=== PATIENT | female | born 2005 | race Caucasian/White ===

== ENCOUNTER 2024-10-01 10:45 | Day surgery (SDC) | payer OTHER, SELFPAY ==
[2024-10-01] VITALS (7 sets, daily range): BP systolic 106–118; BP diastolic 69–86; PULSE 46–75; RESP 12–22; TEMP 36.6; O2SAT 100
--- NOTE | 2024-10-01 11:55 | PM.GYNHP.1 ---
History of Present Illness History of Present Illness Narrative: Soraida Styles is a 19 year old female G0 who presents for a Kyleena IUD insertion Unable to tolerate in the office Has never had a Pap Meds Home Medications and Allergies Allergies Allergy/AdvReac Type Severity Reaction Status Date / Time latex Allergy Intermediate Rash Verified 10/01/24 11:27 Exam Narrative Exam Narrative: Gen: NAD Lungs: CTA bilat CV: RRR Abd: No scars. No HSM Bimanual exam: Deferred to OR Assessment & Plan Assessment & Plan narrative: Assessment: 19 year old G0 who desires Kyleena IUD Unable to tolerate in the office Plan: Kyleena IUD insertion The risks, benefits and alternatives were explained to the patient. The risks including bleeding, infection and uterine perforation. She understands these risks and agrees to proceed. A full PAR-Q was held and consent form was signed. Time-Based Coding :: [TOTAL MINUTES] spent with patient and on the chart (including review of chart, obtaining history, exam, reviewing outside data, placing orders, documenting exam and treatment plan, and counseling patient) on [DATE].
[2024-10-01] MEDS: LACTATED RINGERS 1,000 ML 42 ML IV ×2 (11:58→12:02)
--- NOTE | 2024-10-01 12:02 | PM.PREOP ---
Pre-operative Note Interval Note History & Physical reviewed/Exam performed by Physician: Yes Changes to H&P: No H&P completed within 30 days and has changed as indicated here:: 10/01/24
--- NOTE | 2024-10-01 12:50 | PM.GYNOP.1 ---
Operative Date/Time/Diagnoses Date of procedure: 10/01/24 Time of procedure: 12:50 Pre-op diagnosis: Desires Kyleena IUD Unable to tolerate insertion in the office Due for a Pap smear Post-op diagnosis: same Procedure & Clinicians Procedure: Procedures Operation Date: 10/01/24 13:30 Actual Procedure Side Surgeon p Intrauterine Device Insertion - Kyleena/ PAP SMEAR Shyla Ramey MD Indications: 19-year-old 0 who desires Kyleena IUD for contraceptive management. Unable to tolerate insertion in the office. Patient is due for first Pap smear. Surgeon: Shyla Ramey Anesthesia Type: Sedation Operative Notes Findings: 6 week size anteverted uterus Closure Type: not applicable Specimen(s): other (Pap smear) Estimated blood loss (mL): 2 Procedure in detail: After informed consent was obtained, the patient was taken to the operating room where she was placed in the dorsal supine position. After IV sedation, the patient was placed in the dorsal lithotomy position. A bivalve speculum was placed into the vagina. A Pap smear was obtained. The cervix was cleaned with Betadine. A single-tooth tenaculum was placed on the anterior lip of the cervix. The uterus was sounded to 6 cm. The Kyleena IUD was placed to 6 cm and released. The strings were cut to 2 cm. The single-tooth tenaculum was removed from the anterior lip of the cervix. The bivalve speculum was removed from the vagina. Sponge, lap, and instrument counts were correct x2. The patient tolerated the procedure well, and was taken to PACU in stable condition. Complications: none Post-operative Condition: stable Disposition: PACU Plan for aftercare: Home after recovery
[2024-10-01] MEDS: KETOROLAC 30 MG/ML VIAL IV (13:01)
== END 2024-10-01 13:29 | disposition home or self-care (01) ==
PROVIDERS: Referring Provider Obstetrics & Gynecology; Visit Provider Obstetrics & Gynecology
PROC: (CPT 58300; principal; 2024-10-01 13:30)
DX: Z30.430 Encounter for insertion of intrauterine contraceptive device (principal)
CPT/HCPCS: 58300; 81025; C1713; J1885; J2250; J2405; J2704; J3010